=== PATIENT | female | born 1990 | race Caucasian/White ===

== ENCOUNTER 2021-11-18 13:58 | Outpatient (REF) | payer BC, SELFPAY ==
[2021-11-18 14:18] LABS: MANUAL DIFF FLAG NO
[2021-11-18 14:28] LABS: Basophils Absolute Auto 0.1 X10*3/uL (0.0-0.2); Basophils Percent Auto 0.9 % (0-2); Eosinophils Absolute Auto 0.1 X10*3/uL (0.0-0.4); Eosinophils Percent Auto 0.9 % (0-4); Hematocrit 43.1 % (37.0-47.0); Hemoglobin 14.9 g/dl (12.0-16.0); Imm Gran Abs Auto 0.02 X10*3/uL (0.00-0.03); Imm Gran Pct Auto 0.2 % (0.0-0.4); Lymphocytes Absolute Auto 1.9 X10*3/uL (1.2-4.9); Lymphocytes Percent Auto 22.3 % (20-40); Mean Corpuscular HGB Conc 34.6 g/dl (31.0-35.0); Mean Corpuscular Hemoglobin 30.2 pg (27.0-33.0); Mean Corpuscular Volume 87.4 fL (80.0-98.0); Mean Platelet Volume 10.3 fL (9.4-12.3); Monocytes Absolute Auto 0.5 X10*3/uL (0.1-1.2); Monocytes Percent Auto 5.8 % (2-11); Neutrophils Percent Auto 69.9 % (45-73); Platelet Count 354 X10*3/uL (160-400); Red Blood Count 4.93 X10*6/uL (4.20-5.50); Red Cell Distribution Width 11.3 % (11.0-16.0); White Blood Count 8.6 X10*3/uL (4.8-10.8)
[2021-11-18 14:54] LABS: Alanine Aminotransferase 13 U/L (0-31); Albumin Level 4.7 g/dL (3.5-5.0); Alkaline Phosphatase 185 U/L (39-117); Anion Gap 15 (12-20); Aspartate Amino Transferase 20 U/L (5-31); Bilirubin Total 0.4 mg/dL (0.0-1.0); Blood Urea Nitrogen 10 mg/dL (9-16); Calcium 10.1 mg/dL (8.4-10.2); Carbon Dioxide 21 mmol/L (22-29); Chloride 106 mmol/L (96-108); Cholesterol 194 mg/dL; Estimated Glomerular Filt Rate > 60; Glucose Fasting 97 mg/dL (60-99); HDL Cholesterol 52 mg/dL; LDL Cholesterol Calculated 119 mg/dl; Potassium 4.2 mmol/L (3.3-5.1); Sodium 138 mmol/L (135-145); Triglycerides 119 mg/dL
[2021-11-18 15:13] LABS: Thyroid Stimulating Hormone 0.62 uIU/mL (0.32-4.0)
== END 2021-11-18 13:59 | disposition home or self-care (01) ==
LOC: HO.LAB 13:58
PROVIDERS: PCP Internal Medicine; Visit Provider Internal Medicine
DX: Z00.00 Encounter for general adult medical examination without abnormal findings (principal); Z13.0 Encounter for screening for diseases of the blood and blood-forming organs and certain disorders involving the immune mechanism
CPT/HCPCS: 36415; 80053; 80061; 84443; 85025

== ENCOUNTER 2022-03-01 17:51 | Outpatient (REF) | payer BC, SELFPAY ==
[2022-03-02 02:19] LABS: CT PCR NOT DETECTED (Not Detect.); NG PCR NOT DETECTED (Not Detect.)
[2022-03-02 08:23] LABS: BV Int Neg Control Negative (Negative); BV Int Pos Control Positive (Positive)
== END 2022-03-01 17:52 | disposition home or self-care (01) ==
LOC: HO.LNP 17:51
PROVIDERS: Visit Provider Internal Medicine
DX: Z11.3 Encounter for screening for infections with a predominantly sexual mode of transmission (principal); B37.3 Candidiasis of vulva and vagina
CPT/HCPCS: 87480; 87491; 87510; 87591; 87660

== ENCOUNTER 2023-10-20 10:01 | Outpatient (REF) | payer BC, SELFPAY | END 2023-10-20 10:02 | disposition home or self-care (01) | LOC: HO.LAB 10:01 | PROVIDERS: PCP Internal Medicine; Visit Provider Internal Medicine | DX: Z01.84 Encounter for antibody response examination (principal); Z28.39 Other underimmunization status | CPT/HCPCS: 36415; 86787 ==

== ENCOUNTER 2024-06-18 08:51 | Outpatient (AMB) | payer BC, SELFPAY ==
[2024-06-18 08:52] VITALS: BP 130/78; PULSE 87; O2SAT 95; BMI 30.9
--- NOTE | 2024-06-18 08:52 | A.OFFPC_ITS ---
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 Accompanied by: Self / Same As Patient Allergies Penicillins [PENICILLINS] Allergy (Intermediate, Verified 06/18/24 09:03) RASH penicillin G Allergy (Unknown, Verified 06/18/24 09:03) rash azithromycin [Zithromax] Adverse Reaction (Unknown, Verified 06/18/24 09:03) nausea and vomiting sulfamethoxazole [From Bactrim] Adverse Reaction (Verified 06/18/24 09:03) Rash trimethoprim [From Bactrim] Adverse Reaction (Verified 06/18/24 09:03) Rash Medication List - Last Reconciled 06/23/24 by Vinh Gtz MD amlodipine 5 mg PO DAILY paroxetine HCl (Paxil) 10 mg PO DAILY valacyclovir 500 mg PO DAILY Tobacco use date assessed: 06/18/24 Dental Screening Dental Screen Date: 06/18/24 Did you have a dental visit in the last 12 months?: Yes Did you have a dental problem in the last 6 months where you did not have access to dental care?: No Was dental information given to patient?: Patient has dentist HPI annual exam HPI Details HTN and depression on rx; doing well and compliant FOR[facility]LY [facility] Medical History (Updated 05/24/22 @ 09:08 by Vinh Gtz MD) Hypertension Surgical History History of foot surgery History of tonsillectomy Family History Mother High blood pressure Father High cholesterol High blood pressure Social History Housing: House Alcohol intake: current Alcohol intake frequency: holidays/special occasions only Patient Tobacco Use Status: Former Tobacco user Tobacco use type: Cigarette e-Cigarette/Vaping Use: Never Used Second Hand Smoke Exposure: No service: No Current occupational status: employed Cognitive needs: No Hearing needs: No Vision needs: No Questionnaire PHQ-9 Over the last 2 weeks, how often have you been bothered by any of the following problems? 1. Little interest or pleasure in doing things: several days 2. Feeling down, depressed, or hopeless: several days 3. Trouble falling or staying asleep, or sleeping too much: more than half the days 4. Feeling tired or having little energy: several days 5. Poor appetite or overeating: not at all 6. Feeling bad about yourself - or that you are a failure or have let yourself or your family down: not at all 7. Trouble concentrating on things, such as reading the newspaper or watching television: nearly every day 8. Moving or speaking so slowly that other people could have noticed. Or the opposite - being so fidgety or restless that you have been moving around a lot more than usual: not at all 9. Thoughts that you would be better off or of hurting yourself in some way: not at all Total score: 8 Depression Screening Interpretation: Positive Depression Screening Done: Yes 35703 - PHQ-9 Billing: Yes Source: Developed by Drs. Fabrizio Garcia, Sameera Phillip, Pj Betts and colleagues, with an educational josh from [employer]. Thrive Questionnaire Date Thrive assessed: 06/18/24 I am a: Patient What is your living situation today?: I have a steady place to live Within the past 12 months, did the food you bought not last and you didn't have the money to get more?: Never true Within the past 12 months, did you worry whether your food would run out before you got money to buy more?: Never true Do you have trouble paying for medicines?: No Do you have trouble getting transportation to medical appointments?: No Do you have trouble paying your heating and electricity bill?: No Do you have trouble taking care of your child, family member or friend?: No Do you have trouble with day-to-day activities such as bathing, preparing meals, shopping, managing finances, etc.?: No Are you currently unemployed and looking for a job?: No Are you interested in more education?: Yes Please select the resources that you would like help with: None Currently or been in a relationship where the following occur: I choose not to answer THRIVE Score: 0 AUDIT C Alcohol Use Questionnaire (AUDIT-C) 1. How often do you have a drink containing alcohol?: 2-3 times a week 2. How many drinks containing alcohol do you have on a typical day when you are drinking?: 1 or 2 3. How often do you have six or more drinks on one occasion?: Never Total Score: 3 HEATHER-7 AMB Questionnaire HEATHER-7 Date HEATHER - 7 assessed: 06/18/24 Feeling nervous, anxious, or on edge: 2 = More than half the days Not being able to stop or control worryin = More than half the days Worrying too much about different things: 2 = More than half the days Trouble relaxin = More than half the days Being so restless that it is hard to sit still: 3 = Nearly every day Becoming easily annoyed or irritable: 2 = More than half the days Feeling afraid as if something awful might happen: 2 = More than half the days Total HEATHER-7 score (0-4 normal; 5-9 mild; 10-14 moderate; 15-21 severe): 15 Source: Developed by Drs. Fabrizio Garcia, Sameera Phillip, Pj Betts and colleagues, with an educational josh from [employer]. HEATHER-7 Assessment Billing HEATHER-7 Assessment Tool: HEATHER-7 Assessment 71208 Review of Systems Const Denies chills, Denies fatigue, Denies headache(s) and Denies weight loss Eyes Denies change in vision, Denies diplopia and Denies eye pain ENT Denies vertigo, Denies dizziness, Denies headache(s) and Denies nasal discharge Card Denies chest pain, Denies rapid heart rate and Denies dyspnea on exertion Resp Denies chest congestion, Denies cough, Denies pain with cough and Denies dyspnea on exertion GI Denies abdominal pain, Denies hematochezia and Denies change in bowel habits Musc Denies myalgias, Denies arthralgias and Denies joint swelling Skin/Breast Denies lesions and Denies unusual bruising Neuro Denies vertigo, Denies dizziness, Denies headache(s) and Denies focal weakness Endo Denies fatigue Physical exam (Primary Care) Vital Signs: Last Vital Signs Pulse 87 06/18/24 08:52 BP 130/78 06/18/24 08:52 Pulse Ox 95 06/18/24 08:52 Oxygen Delivery Method Room Air 06/18/24 08:52 BMI result Body Mass Index 30.9 Tobacco/Smoking Status: Tobacco use Status Tobacco use date assessed 06/18/24 06/18/24 08:57 Patient Tobacco Use Status Former Tobacco user 06/18/24 08:54 Tobacco use type Cigarette 06/18/24 08:54 e-Cigarette/Vaping Use Never Used 06/18/24 08:54 PHQ-9: PHQ-9 Score PHQ-9: Total score 8 06/18/24 08:57 Depression Screening Interpretation: Positive Thrive Assessment: Date of Thrive Assessment Date Thrive assessed 06/18/24 06/18/24 08:57 Currently or been in a relationship where the following occur: I choose not to answer Const General: cooperative, healthy appearing and no acute distress Orientation/consciousness: oriented to person, oriented to place and oriented to time HENMT Head: Yes normal to inspection, Yes normocephalic and Yes atraumatic Mouth: Normal oral and palatal mucosa present and tongue normal Throat: Yes posterior oropharynx normal and Yes uvula midline Eyes General: appearance normal, both eyes and all related structures Neck Neck: Yes normal visual inspection, Yes full ROM and Yes no lymphadenopathy Thyroid: Thyroid normal Carotids: normal carotid upstroke Chest Chest palpation & inspection: normal inspection of the chest Resp Effort & Inspection: normal respiratory effort and able to speak in complete sentences Auscultation: clear to auscultation bilaterally Cardio Jugular venous distension: no JVD Palpation: normal PMI Rate: regular rate Rhythm: regular rhythm Heart sounds: S1 normal heart sound present and S2 normal heart sound present GI Inspection: Yes normal to inspection Palpation (GI): Soft to palpation and No hepatosplenomegaly present Auscultation: normal bowel sounds General: Yes no CVA tenderness Back/Spine/Pelvis Back: no CVA tenderness Skin General skin exam: no rashes or lesions noted Neuro General: oriented to person, oriented to place and oriented to time Extrem General: Yes normal to inspection and Yes full ROM Coding Level of Care Code Est Pt Prev Care 18-39y(27993) Diagnoses Physical exam Z00.00 Hypertension I10 Panic disorder F41.0 Additional Codes HEATHER-7 Assessment Billing - HEATHER-7 Assessment Tool: HEATHER-7 Assessment 14860 ([id number]) Assessment & Plan Assessment & Plan (1) Physical exam: Code(s): Z00.00 - Encounter for general adult medical examination without abnormal findings Category: Medical Plan: stable; do labs (2) Hypertension: Code(s): I10 - Essential (primary) hypertension Category: Medical Plan: stable; same rx (3) Panic disorder: Code(s): F41.0 - Panic disorder [episodic paroxysmal anxiety] Category: Medical Plan: stable; same rx Medications: New valacyclovir 500 mg PO DAILY 90 tabs 1RF
== END 2024-06-18 10:13 | disposition home or self-care (01) ==
PROVIDERS: PCP Internal Medicine; Visit Provider Internal Medicine
DX: Z00.00 Encounter for general adult medical examination without abnormal findings (principal); I10 Essential (primary) hypertension; F41.0 Panic disorder [episodic paroxysmal anxiety]

== ENCOUNTER → 2024-06-18 08:51 | Outpatient (BNVA) | payer BC, SELFPAY | PROVIDERS: PCP Internal Medicine; Visit Provider Internal Medicine | DX: Z00.00 Encounter for general adult medical examination without abnormal findings (principal); I10 Essential (primary) hypertension; F41.0 Panic disorder [episodic paroxysmal anxiety] | CPT/HCPCS: 96127 ==

== ENCOUNTER 2025-06-22 09:22 | Outpatient (AMB) | payer BC, SELFPAY ==
--- NOTE | 2025-06-22 09:38 | A.OFFPC_ITS ---
Vital Signs 06/22/25 09:39 Height 5 ft 9 in Weight 206 lb BMI 30.4 BP 140/80 H Blood Pressure Location Lt brachial Position Sitting Pulse 82 Pulse Source Pulse Oximeter Temp 97.3 F Temp Source Temporal Artery Scan Pulse Oximetry (%) 98 Oxygen Delivery Method Room Air Intake Visit Reasons: annual exam/jean claude DR Gtz Intake Note: Patient is here today for a physical and JEAN CLAUDE from Dr Gtz. 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 per policy Accompanied by: Self / Same As Patient Allergies Penicillins (PENICILLINS) Allergy (Intermediate, Verified 06/22/25 09:39) RASH penicillin G Allergy (Unknown, Verified 06/22/25 09:39) rash azithromycin (Zithromax) Adverse Reaction (Unknown, Verified 06/22/25 09:39) nausea and vomiting sulfamethoxazole (From Bactrim) Adverse Reaction (Verified 06/22/25 09:39) Rash trimethoprim (From Bactrim) Adverse Reaction (Verified 06/22/25 09:39) Rash Medication List - Last Reconciled 06/22/25 by Chiquita Lugo PA-C amlodipine 5 mg PO DAILY paroxetine HCl (Paxil) 10 mg PO DAILY valacyclovir 1,000 mg PO BID Tobacco use date assessed: 06/22/25 Dental Screening Dental Screen Date: 06/22/25 Did you have a dental visit in the last 12 months?: Yes Did you have a dental problem in the last 6 months where you did not have access to dental care?: No Was dental information given to patient?: Patient has dentist HPI annual exam/jean claude DR Gtz HPI Details 35 year old female with past medical his tory of hypertension last seen 06/2024 coming in for annual exam/ JEAN CLAUDE from Dr. Gtz. Presenting for an annual wellness visit and to discuss ongoing management of chr onic conditions including hypertension, anxiety, and migraines. Reports elevated blood pressure at medical visits, normal at home. On amlodipine, adheres to regimen, experiences symptoms when elevated. History of proteinuria, considering kidney-protective antihypertensive. On paroxetine, feels it's not fully effective for anxiety. Experiences severe anxiety attacks infrequently, leading to blackout episodes. Considering dosage adjustment. Long-standing history, associated with hormonal changes. Severe headaches with nausea and light sensitivity, especially around menstrual cycle. Interested in prescription options for better control. Reports symptoms suggestive of sleep apnea, including choking during sleep. Sleep study planned. Gastrointestinal Symptoms: Reports symptoms suggestive of celiac disease or IBS, including food intolerances and diarrhea. Interested in testing for celiac disease before colonoscopy. pap smear: UTD 2022 vaccines: due for Tdap but [place] [facility] [place] [facility] Medical History Asthma Hypertension Surgical History H/O bilateral salpingectomy History of foot surgery History of tonsillectomy Family History Mother High blood pressure Father High cholesterol High blood pressure Social History Housing: House Alcohol intake: current Alcohol intake frequency: holidays/special occasions only Patient Tobacco Use Status: Former Tobacco user Tobacco use type: Cigarette e-Cigarette/Vaping Use: Never Used Second Hand Smoke Exposure: Yes service: No Current occupational status: employed Cognitive needs: No Hearing needs: No Vision needs: No Female Reproductive History Menstrual control method: permanent sterilization Permanent Sterilization: BTL Total pregnancies: 3 Full term: 1 Ab induced: 1 Ab spontaneous: 1 History of abnormal pap smear: Yes History of abnormal mammogram: No Questionnaire PHQ-9 Over the last 2 weeks, how often have you been bothered by any of the following problems? 1. Little interest or pleasure in doing things: more than half the days 2. Feeling down, depressed, or hopeless: not at all 3. Trouble falling or staying asleep, or sleeping too much: not at all 4. Feeling tired or having little energy: not at all 5. Poor appetite or overeating: nearly every day 6. Feeling bad about yourself - or that you are a failure or have let yourself or your family down: not at all 7. Trouble concentrating on things, such as reading the newspaper or watching television: nearly every day 8. Moving or speaking so slowly that other people could have noticed. Or the opposite - being so fidgety or restless that you have been moving around a lot more than usual: not at all 9. Thoughts that you would be better off or of hurting yourself in some way: not at all Total score: 8 Depression Screening Interpretation: Positive Depression Screening Follow-up: Existing condition and In treatment Depression Screening Done: Yes Source: Developed by Drs. Fabrizio Garcia, Sameera Phillip, Pj Betts and colleagues, with an educational josh from [employer]. Thrive Questionnaire Date Thrive assessed: 06/21/25 I am a: Patient What is your living situation today?: I have a steady place to live Within the past 12 months, did the food you bought not last and you didn't have the money to get more?: Never true Within the past 12 months, did you worry whether your food would run out before you got money to buy more?: Never true Do you have trouble paying for medicines?: No Do you have trouble getting transportation to medical appointments?: No Do you have trouble paying your heating and electricity bill?: No Do you have trouble taking care of your child, family member or friend?: No Do you have trouble with day-to-day activities such as bathing, preparing meals, shopping, managing finances, etc.?: No Are you currently unemployed and looking for a job?: No Are you interested in more education?: No Please select the resources that you would like help with: None Currently or been in a relationship where the following occur: No concerns reported THRIVE Score: 0 AUDIT C Alcohol Use Questionnaire (AUDIT-C) 1. How often do you have a drink containing alcohol?: Monthly or less 2. How many drinks containing alcohol do you have on a typical day when you are drinking?: 1 or 2 3. How often do you have six or more drinks on one occasion?: Never Total Score: 1 HEATHER-7 AMB Questionnaire HEATHER-7 Date HEATHER - 7 assessed: 06/22/25 Feeling nervous, anxious, or on edge: 3 = Nearly every day Not being able to stop or control worryin = Nearly every day Worrying too much about different things: 3 = Nearly every day Trouble relaxin = Nearly every day Being so restless that it is hard to sit still: 3 = Nearly every day Becoming easily annoyed or irritable: 1 = Several days Feeling afraid as if something awful might happen: 0 = Not at all Total HEATHER-7 score (0-4 normal; 5-9 mild; 10-14 moderate; 15-21 severe): 16 Source: Developed by Drs. Fabrizio Garcia, Sameera Phillip, Pj Betts and colleagues, with an educational josh from [employer]. HEATHER-7 Assessment Billing HEATHER-7 Assessment Tool: HEATHER-7 Assessment 84565 Review of Systems Const Denies body aches, Denies chills, Denies fever(s), Reports headache(s) (w/ ovulation ) and Denies poor appetite Eyes Reports no additional complaints ENT Details: uncommon vertigo Denies dysphagia, Denies dizziness, Reports headache(s) (w/ ovulation ) and Denies odynophagia Card Denies chest pain, Denies syncope, Denies edema, Denies irregular heart rhythm, Denies lightheadedness and Denies dyspnea Resp Denies cough and Denies dyspnea GI Denies abdominal pain, Denies constipation, Denies dysphagia, Reports diarrhea, Denies nausea, Denies odynophagia and Denies vomiting Reports no additional complaints Musc Reports no additional complaints and Denies abnormal gait Skin/Breast Reports system reviewed and no additional complaints, except as documented Neuro Denies abnormal gait, Denies dizziness, Denies syncope and Reports headache(s) (w/ ovulation ) Psych Reports no additional complaints Physical exam (Primary Care) Tobacco/Smoking Status: Tobacco use Status Tobacco use date assessed 06/18/24 06/18/24 08:57 Patient Tobacco Use Status Former Tobacco user 06/18/24 08:54 Tobacco use type Cigarette 06/18/24 08:54 e-Cigarette/Vaping Use Never Used 06/18/24 08:54 Depression Screening Interpretation: Positive Depression Screening Follow-up: Existing condition and In treatment Thrive Assessment: Date of Thrive Assessment Date Thrive assessed 06/21/25 06/21/25 08:40 Currently or been in a relationship where the following occur: No concerns reported Const General: cooperative, healthy appearing, comfortable and no acute distress Orientation/consciousness: patient oriented x3 HENMT Head: Yes normocephalic Ears: hearing grossly normal bilaterally, external ears normal, TM's normal bilaterally and EAC's normal General nose exam: Normal external nose present Face and sinus: Yes normal facial exam and Yes sinuses nontender Mouth: Normal oral and palatal mucosa present and tongue normal Throat: Yes posterior oropharynx normal Eyes General: appearance normal, both eyes and all related structures Conjunctivae: conjunctivae normal Pupils: Equal, round and reactive pupils present EOM: EOMs intact bilaterally and No Nystagmus present Neck Neck: Yes normal visual inspection, Yes full ROM and Yes no lymphadenopathy Chest Chest palpation & inspection: normal inspection of the chest Resp Effort & Inspection: normal respiratory effort Auscultation: clear to auscultation bilaterally, no crackles, no rales, no rhonchi, no wheezes and breath sounds present Cardio Rate: regular rate Rhythm: regular rhythm Peripheral pulses: radial pulses present and dorsalis pedis present GI Inspection: Yes normal to inspection and No Abdominal wall edema Palpation (GI): Soft to palpation, not firm and nontender Auscultation: normal bowel sounds Rectal Exam - Female: deferred General: Yes no CVA tenderness Back/Spine/Pelvis Back: no CVA tenderness Skin General skin exam: no rashes or lesions noted Neuro General: patient oriented x3 Cranial nerves: Yes Equal, round and reactive pupils present, Yes Midline tongue present, Yes Ability to bilaterally elevate shoulders present and No Nystagmus present Gait exam (Neuro): Normal gait present Extrem General: Yes normal to inspection, Yes full ROM, No no pedal edema and No edema Psych Speech and movement: Normal speech and movement present Affect: normal affect Insight: Good insight present (Psych) Judgement: Good judgement present (Psych) Coding Level of Care Code Est Pt Prev Care 18-39y([id number]) Diagnoses Physical exam Z00.00 Hypertension I10 Panic disorder F41.0 Anxiety F41.9 Hypersomnolence G47.10 Diarrhea R19.7 Obesity (BMI 30.0-34.9) E66.811 BPPV (benign paroxysmal positional vertigo) H81.10 Migraine G43.909 Additional Codes HEATHER-7 Assessment Billing - HEATHER-7 Assessment Tool: HEATHER-7 Assessment [id number] ([id number]) Assessment & Plan Assessment & Plan (1) Physical exam: Code(s): Z00.00 - Encounter for general adult medical examination without abnormal findings Category: Medical Plan: Patient is up to date on all recommended routine screenings and vaccinations for her age. She is due for TDAP which we do not currently have in the office and she agrees to get at her next visit. Healthy diet and regular exercise is encouraged. Ordered for repeat blood work. (2) Hypertension: Code(s): I10 - Essential (primary) hypertension Category: Medical Plan: Continue on current blood pressure medication. Avoid salt intake and encourage healthy diet and regular exercise. The patient is on amlodipine for hypertension. Reports elevated readings at medical visits, normal at home. Plan to monitor at home and maintain a log. Consider switching to kidney-protective antihypertensive if proteinuria persist s. (3) Panic disorder: Code(s): F41.0 - Panic disorder [episodic paroxysmal anxiety] Category: Medical Plan: The patient is on paroxetine but feels it's not fully effective. Discussed dosage adjustment to 1.5 tablets daily before considering a full increase to 20 mg at patient request. Plan includes monitoring symptoms and adjusting treatment as needed. (4) Anxiety: Code(s): F41.9 - Anxiety disorder, unspecified Category: Medical Plan: See above (5) Hypersomnolence: Code(s): G47.10 - Hypersomnia, unspecified Category: Medical Plan: The patient reports symptoms suggestive of sleep apnea. Ordered sleep study to confirm diagnosis. Discussed positional therapy and weight management as potential interventions if confirmed. (6) Diarrhea: Code(s): R19.7 - Diarrhea, unspecified Category: Medical Plan: The patient reports symptoms suggestive of celiac disease or diverticulitis. Planned testing for celiac disease, discussed dietary modifications as potential management strategies. Recommend low FODMAP diet and fiber supplement as well. (7) Obesity (BMI 30.0-34.9): Code(s): E66.811 - Obesity, class 1 Category: Medical Plan: The patient expresses difficulty losing weight. Considering more physical activity, discussed strategies for weight management, including potential use of a walking pad for home exercise. (8) BPPV (benign paroxysmal positional vertigo): Code(s): H81.10 - Benign paroxysmal vertigo, unspecified ear Category: Medical Plan: The patient manages occasional vertigo with the Lindsey maneuver. No additional treatment necessary as episodes are infrequent and manageable. (9) Migraine: Code(s): G43.909 - Migraine, unspecified, not intractable, without status migrainosus Category: Medical Plan: potentially hormone related and will seek LUMBER DRIVER advice in addition. Discussed propranolol as a preventive measure. Advised to start with a low dose and adjust based on tolerance and effectiveness. Plan This note was constructed using voice recognition software. While every effort has been made to ensure accuracy and retail area manager, still areas may have been included sometimes these areas may affect the content or meeting of the given symptoms. Total time spent caring for the patient today was 40 minutes. This includes time spent before the visit reviewing the chart, time spent during the visit, and time spent after the visit and documentation. Patient was informed and verbally consented to the use of an ambient scribe for clinic note documentation during this visit. Orders: Orders Vitamin D 25-OH Total Today Z13.21 - Encounter for screening for nutritional disorder TSH reflex Free T4 Today Z13.29 - Encounter for screening for other suspected endocrine disorder Vitamin B12 and Folate Today Z13.21 - Encounter for screening for nutritional disorder Comprehensive Met. Panel Today I10 - Essential (primary) hypertension, Z00.00 - Encounter for general adult medical examination without abnormal findings Complete Blood Count Auto Diff Today I10 - Essential (primary) hypertension, Z13.0 - Encounter for screening for diseases of the blood and blood-forming organs and certain disorders involving the immune mechanism Lipid Panel Today Z13.220 - Encounter for screening for lipoid disorders UA CC w/rflx Micro + Cult Today R35.89 - Other polyuria Transglutaminase Ab IgG Today Z91.018 - Allergy to other foods RT home sleep study Today G47.10 - Hypersomnia, unspecified Referrals RELATIONS LIAISON Referral Z12.4 - Encounter for screening for malignant neoplasm of cervix Medications: New paroxetine HCl 15 mg (1.5 x 10 mg) PO DAILY 45 tabs 0RF 30 days propranolol 20 mg PO BID 60 tabs 0RF Discontinued paroxetine HCl (Paxil) Discontinued Reason: Patient no longer taking 10 mg PO DAILY 90 tabs 0RF
[2025-06-22 09:39] VITALS: BP 140/80; PULSE 82; TEMP 36.3; O2SAT 98; BMI 30.4
--- OUTSIDE RECORDS SUMMARY | 2025-06-22 10:34 | XMS_ITS | Clinical Summary ---
Author Organization [facility] Address [address] [place] [id number] Phone Care Team Providers Care Back Joiner Name Role Phone Unavailable Primary Care Provider Unavailabl e Immunizations Immunization Administration Dates Next Due DTP 01/25/1995, 2,1990,09/12,1990 Hep B, ped/adol 10/18/2001,06/17/2001,05/14/2001 Hib (PRP-T) 11/18/1991, 1,1990,09/12 MMR 01/25/1995,08/15/1991 Meningococcal Conj (Menactra) MCV4P 05/02/2006 OPV 01/25/1995, 2,1990,07/12 Td (adult) (MBL), 2 Lf tetan us toxoid, PF, adsorbed 06/16/2002 Family History Relation Name Status Comments Father Alive Father: Alive a nd well Mother Alive Mother: vision problems Other Family history of Diabetes mellitus Sister Alive Sister: Alive a nd well Social History Tobacco Use Types Packs/Day Years Used Date Smoking Tobacco: Never Assessed Comments Unknown Sex and Gender Information Value Date Recorded Sex Assigned at Not on file Legal Sex Female 4:30 PM EDT Gender Identity Not on file Sexual Orientation Not on file Plan of Treatment Health Maintenance Due Date Last Done Comments DTaP,Tdap,and Td Vaccines (6 - Tdap) 06/17/2002 06/16/2002, 01/25/1995, 11/18/1991, Additional history exists Varicella Vaccines (1 of 2 - 13+ 2-dose series) 2003 HPV Vaccines (1 - 3-dose SCDM series) 2017 Influenza Vaccines (#1) 2025 COVID-19 Vaccine ( season) 2025 HIB Vaccines Completed 11/18/1991, 04/18, 1990, Additional history exists IPV Vaccines Completed 01/25/1995, 11/1991, 1990, Additional history exists MMR Vaccines Completed 01/25/1995, 08/15/1991 Hepatitis B Vaccines Completed 10/18/2001, 06/17/2001, 05/14/2001 Meningococcal Vaccine Aged Out 05/02/2006 No jonathan bandar eligible based on patient's age to complete this topic Hepatitis A Vaccines Aged Out No long er eligible based on patient's age to complete this topic Men B Vaccine Aged Out No longer elig ible based on patient's age to complete this topic Pneumococcal Vaccine Aged Out No long er eligible based on patient's age to complete this topic
--- OUTSIDE RECORDS SUMMARY | 2025-06-22 10:34 | XMS_ITS | Encounter Summary ---
Author Organization [facility] Address [address] [place] [address] Phone Care Team Providers Care Air Purifier Servicer Name Role Phone Kat Avila MD Primary Care Provider Encounter Details Date Type Department Care Team (Late st Contact Info) Description 05/03/2017 Conversion Encounter [facility] [place] [address] [place] [address] Social History Tobacco Use Types Packs/Day Years Used Date Smoking Tobacco: Never Assessed Comments Unknown Sex and Gender Information Value Date Recorded Sex Assigned at Not on file Legal Sex Female 4:30 PM EDT Gender Identity Not on file Sexual Orientation Not on file documented as of this encounter Plan of Treatment Not on file documented as of this encounter Visit Diagnoses Not on filedocumented in this encounter Care Teams Air Purifier Servicer Relationship Specialty Start Date End Date Kat Avila MD [address] [place] [address] PCP - General 04/27/17 03/08/23 documented as of this encounter
== END 2025-06-22 10:36 | disposition home or self-care (01) ==
LOC: HO.HMCH 09:23
DX: Z00.00 Encounter for general adult medical examination without abnormal findings (principal); I10 Essential (primary) hypertension; E66.811 Obesity, class 1; Z68.30 Body mass index [BMI] 30.0-30.9, adult; F41.0 Panic disorder [episodic paroxysmal anxiety]; F41.9 Anxiety disorder, unspecified; G47.10 Hypersomnia, unspecified; R19.7 Diarrhea, unspecified; H81.10 Benign paroxysmal vertigo, unspecified ear; G43.909 Migraine, unspecified, not intractable, without status migrainosus

== ENCOUNTER → 2025-06-22 09:22 | Outpatient (BNVA) | payer BC, SELFPAY | DX: Z00.00 Encounter for general adult medical examination without abnormal findings (principal); I10 Essential (primary) hypertension; F41.0 Panic disorder [episodic paroxysmal anxiety]; F41.9 Anxiety disorder, unspecified; G43.909 Migraine, unspecified, not intractable, without status migrainosus; G47.10 Hypersomnia, unspecified; R19.7 Diarrhea, unspecified; E66.811 Obesity, class 1; H81.10 Benign paroxysmal vertigo, unspecified ear; R35.89 Other polyuria; Z91.018 Allergy to other foods; Z68.30 Body mass index [BMI] 30.0-30.9, adult | CPT/HCPCS: 96127 ==